=== PATIENT | female | born 1950 | race Caucasian/White ===

== ENCOUNTER 2016-10-20 17:09 | Emergency (ER) | payer MEDICARE, OTHER ==
--- NOTE | 2016-10-20 19:45 | UC ---
Complaint Female HPI - HPI Summary HPI Summary: red rash on bilat upper thighs, groin and lower abdomen for a month. Tried multiple OTC creams including clotrimazole and miconazole without relief. Is with her of many years, is not worried about STDS. Pt denies any urinary sxs. - History Of Current Complaint Chief Complaint: UCGU Stated Complaint: PERSONAL Time Seen by Provider: 10/20/16 19:36 Hx Obtained From: Patient Hx Last Menstrual Period: n/a ?: No Onset/Duration: Gradual Onset, Lasting Days, Still Present Severity Initially: Moderate Severity Currently: Moderate Pain Intensity: 10 Pain Scale Used: 0-10 Numeric Character: Burning Aggravating Factor(s): Nothing Alleviating Factor(s): Nothing Associated Signs And Symptoms: Positive: Genital Swelling. Negative: Vaginal Bleeding/Discharge, Vaginal Discharge - Allergies/Home Medications Allergies/Adverse Reactions: Allergies Allergy/AdvReac Type Severity Reaction Status Date / Time No Known Allergies Allergy Verified 10/20/16 19:01 PMH/Surg Hx/FS Hx/Imm Hx Previously Healthy: Yes Cardiovascular History Of: Denies: Cardiac Disorders, Hypertension Respiratory History Of: Denies: Asthma - Surgical History Surgical History: Yes Surgery Procedure, Year, and Place: -1991, D + C-2005 - Family History Known Family History: Positive: Hypertension - Social History Lives: With Family Alcohol Use: Rare Substance Use Type: None Smoking Status (MU): Never Smoked Tobacco Have You Smoked in the Last Year: No - Immunization History Most Recent Influenza Vaccination: FALL 2013 Review of Systems Constitutional: Negative Skin: Rash - red rash on lower abd and groin and legs Eyes: Negative ENT: Negative Respiratory: Negative Cardiovascular: Negative Gastrointestinal: Negative Genitourinary: Negative Motor: Negative Neurovascular: Negative Musculoskeletal: Negative Neurological: Negative Psychological: Negative All Other Systems Reviewed And Are Negative: Yes Physical Exam Triage Information Reviewed: Yes Appearance: Ill-Appearing, Pain Distress, Obese Vital Signs: Initial Vital Signs Temp 97.9 F 10/20/16 18:53 Pulse 94 10/20/16 18:53 Resp 16 10/20/16 18:53 BP 176/86 10/20/16 18:53 Pulse Ox 97 10/20/16 18:53 Vital Signs Reviewed: Yes Eyes: Positive: Conjunctiva Clear ENT: Positive: Normal ENT inspection Neck: Positive: Supple Respiratory: Positive: No respiratory distress Cardiovascular: Positive: RRR, No Murmur, Pulses Normal, Brisk Capillary Refill Abdomen Description: Positive: Nontender, No Organomegaly, Soft. Negative: Distended, Guarding Bowel Sounds: Positive: Present Musculoskeletal: Positive: Strength Intact, ROM Intact Neurological: Positive: Alert, Muscle Tone Normal Psychological Exam: Normal Skin: Positive: Other - confluent red rash on lower abd, vulvae, upper inner thighs and groin Complaint Female Dx - Differential Dx/Diagnosis Differential Diagnosis/HQI/PQRI: Urinary Tract Infection, Other - cellulitis, yeast vulvovaginitis Provider Diagnoses: yeast vulvovaginitis. possible cellulitis. possible allergic reaction Discharge - Discharge Plan Condition: Stable Disposition: HOME Prescriptions: Cephalexin CAP* [Keflex 500 CAP*] 500 mg PO QID #40 cap Fluconazole 150 MG (NF) [Diflucan 150 mg (NF)] 150 mg PO ONCE #7 tab predniSONE TAB* [Deltasone TAB*] 40 mg PO DAILY #10 tab Patient Education Materials: Cellulitis (ED), Vulvovaginal Candidiasis (ED) Referrals: Azul Vazquez MD [Primary Care Provider] - Additional Instructions: We gave the first dose of fluconazole tonight. Start fluconazole 150mg orally tomorrow and take it every 72 hrs until your symptoms resolve. If you do not have improvement in 2 days (Wed) then start cephalexin 500mg four times a day for ten days for possible cellulitis, being mindful that an antibiotic can make a yeast infection worse, so continue the fluconazole. You may also start prednisone 40mg daily for 5 days for possible allergic reaction. You may also use miconazole cream externally to treat yeast externally on the vulva and in the groin. You may also take benadryl or claritin for possible allergic reaction, and you may also try pepcid for possible allergic reaction (pepcid decreases histamine). Keep your appointment with Dr. Vazquez. Return to urgent care if you have any new or worsening symptoms.
[2016-10-20] MEDS ORDERED: Fluconazole 100 MG TAB* TAB PO ONE (20:16)
[2016-10-20 21:00] VITALS: BP 164/91
== END 2016-10-20 21:05 | disposition home or self-care (01) ==
LOC: UCCORT 17:09
DX: B37.3 Candidiasis of vulva and vagina (principal)
CPT/HCPCS: 87480; 87510; 99213; A9270-GY; G0463